=== PATIENT | male | born 2000 | race African-American/Black ===

== ENCOUNTER 2024-08-03 23:18 | Emergency (ER) | payer MEDICAID, SELFPAY ==
[2024-08-03 23:28] VITALS: BP 114/72; PULSE 64; RESP 18; O2SAT 100
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
[2024-08-04] MEDS: TETANUS,DIPHTHERIA,AC PERTUSSIS ADULT (0.5 ML) BOOSTRIX IM (00:36)
[2024-08-04] MEDS: AMOXICILLIN/CLAVULANATE K 875-125 MG TAB 1 TABLET PO (00:37)
[2024-08-04] MEDS: LIDOCAINE 1% LOCAL INJ 20 ML VIAL 5 ML INFILTRATE (01:26)
== END 2024-08-04 01:35 | disposition home or self-care (01) ==
PROVIDERS: Emergency Provider Physician Assistant
DX: S01.81XA Laceration without foreign body of other part of head, initial encounter (principal); S01.512A Laceration without foreign body of oral cavity, initial encounter; Y04.0XXA Assault by unarmed brawl or fight, initial encounter; Z23 Encounter for immunization
CPT/HCPCS: 12011; 90471; 90715; 99283; A9270; J2003